=== PATIENT | female | born 1945 | race Caucasian/White ===

== ENCOUNTER 2019-06-18 17:35 | Emergency (ER) | payer MEDICARE ==
--- OUTSIDE RECORDS SUMMARY | 2019-06-18 17:43 | XMS REPORT | Continuity of Care Document ---
:1945 External Reference #:[id number] Author Name Mily Meredith M.D. (transmitted by agent of provider Vianca Ferrell) Address [address] [place] [address] Problems Active Problems Provider Date Type 2 diabetes mellitus Mily Meredith M.D. 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 256(28Fe) mg Tablets B12 Folate 1 by mouth daily 90caps D50.9 Mily Meredith, 05/11/2019 800-800mcg M.D. Capsules Nystatin/Triamcinolo apply to affectd 60gm Mily Meredith, 05/09/2019 ne Acetonide area of skin teice M.D. a day 464564-7.1Unit/GM-% Ointment Nystatin-Triamcinolo Apply To Affectd 60gm Mily Meredith, 05/09/2019 ne Area Of Skin Twice M.D. A Day 653921-5.1Unit/GM-% Ointment True Metrix Meter daily use for fs 1units E11.9 Mily Meredith, 02/20/2019 monitoring e11.65, M.D. Device uses 2x daily True Metrix Blood daily use for fs 150units E11.9 Mily Meredith, 02/20/2019 Glucosetest Strips monitoring e11.65, M.D. test 2x daily Strips [facility] Lancets Micro for use to monitor 100units E11.9 Mily Meredith, 2018 Thin 33G glucose , tests M.D. Thin 33G twice daily Misc Zolpidem Tartrate 1 tab by mouth 30tabs G47.00 Mily Meredith, 08/01/2018 every night at M.D. 10mg Tablets bedtime as needed Advair Diskus 1bid - inhale one 3units J44.9 Mily Meredith, 01/14/2017 puff by mouth M.D. 250-50mcg/Dose twice daily Aerosol Fluticasone as directed daily 16units J30.9 Mily Meredith, 07/28/2016 Propionate M.D. 50mcg/Act Suspension Omeprazole 1 by mouth every 90caps K21.9 Mily Meredith, 10/22/2015 20mg day M.D. Capsules DR Weber Calcium Take 1 Tablet By 90tabs E78.5 Mily Meredith, 06/17/2015 Mouth Every Day M.D. 40mg Tablets Lexapro 1 po qd 90tabs F41.1 Mily Meredith, 10/12/2011 10mg Tablets M.D. Albuterol Sulfate 1 vial qid 90units Mily Meredith, 08/05/2010 M.D. 0.63mg/3ML Nebulizer Metformin HCL 1 by mouth twice a 180tabs Mily Meredith, 01/01/2009 1000mg day M.D. Tablets Montelukast Sodium Take 1 Tablet By 90tabs Mily Meredith, Mouth Every Day M.D. 10mg Tablets History Medications Ra Trueresult Blood Mily Meredith, 02/07/2019 - Glucose Monitor M.D. 02/20/2019 w/Device Kit Truetest Test as directed for fs 400units Mily Meredith, 02/07/2019 - Strips monitoring for dx M.D. 02/20/2019 e11.65 Medications Administered in Office Medication SIG Qnty Indications Ordering Provider Date H1N1 Administration-Use Mily Meredith M.D. 07/12/2009 Injection Immunizations CPT Code Status Date Vaccine Lot # [id number] Given 05/03/2018 Influenza Virus (Quadrivalent)Splitvirus 3 Years Of Age And Older Q2035 Given 05/03/2018 Influenza Virus (Quadrivalent)Splitvirus 3 Years Of Age And Older Q2035 Given 04/21/2017 Influenza Virus (Quadrivalent)Splitvirus 3 [id number] Years Of Age And Older Q2037 Given 03/31/2016 Influenza Vaccine (Fluvirin) 2 Years Of Age Or [id number] Older 86741 Given 06/17/2015 Pneumococcal Conjugate Vaccine 13 Valent For [id number] Intramuscular Use Q2037 Given 06/04/2015 Influenza Vaccine (Fluvirin) 2 Years Of Age Or [id number] Older Q2037 Given 04/24/2014 Influenza Vaccine (Fluvirin) 2 Years Of Age Or Older Q2037 Given 04/24/2014 Influenza Vaccine (Fluvirin) 2 Years Of Age Or [id number] Older Q2038 Given 04/12/2013 Influenza Vaccine (Fluzone) Administered Age 3 [id number] And Older Q2038 Given 04/12/2013 Influenza Vaccine (Fluzone) Administered Age 3 And Older Q2037 Given 03/30/2012 Influenza Vaccine (Fluvirin) 2 Years Of Age Or [id number] Older Q2036 Given 04/30/2011 Flulaval [id number] Given 01/09/2011 Zostavax [id number] 85616 Given 04/15/2010 [place]neumovax [place] [id number] 09320 Given 04/15/2010 Influenza Vaccine [id number] 63009 Given 04/03/2009 Influenza Vaccine 88015 Given 05/06/2007 Influenza Vaccine 04425 85407 Given 08/04/2006 Influenza Vaccine [id number] Vital Signs Date Vital Result Comment 06/15/2019 10:51am BP Systolic 140 mmHg BP Diastolic 80 mmHg Heart Rate 84 /min Respiratory Rate 16 /min Height 62 inches 5'2" Weight 162.00 lb BMI (Body Mass Index) 29.6 kg/m2 O2 % BldC Oximetry 97 % 05/11/2019 12:16pm BP Systolic 162 mmHg BP Diastolic 92 mmHg Heart Rate 80 /min Height 63 inches 5'3" Weight 154.00 lb BMI (Body Mass Index) 27.3 kg/m2 O2 % BldC Oximetry 95 % Results Test Acquired Date Facility Test Result H/L Range Note Iron-Tibc-%Sat 06/08/2019 [facility] Serum Iron 21 g/dL Low 50-[address] [place] [address] [phone] Total Iron Binding Capacity 456 g/dL High 250-450 Transferrin %Saturation 5 % Low 12-57 Vitamin B12 06/08/2019 [facility] Vitamin B12 378 pg/ mL Normal 193-986 [address] Folate [address] [place], [place] [id number] [phone] Folic Acid > 20.0 ng/mL High 3.1-17.5 Laboratory test 06/05/2019 [facility] Enhanced PDF PDF IMAGE [address] [place] [address] [id number] [phone] Iron And Total 06/05/2019 [facility] Iron, Total 15 g/dL Low 45- [address] Binding [address] [place] [address] [phone] Iron Binding Capacity 428 mcg/dL(calc) Normal 250-450 % Saturation 4 %(calc) Low 16-45 Laboratory test 06/05/2019 [facility] PDF PDF IMAGE finding [address] [place] [address] [id number] [phone] Hemoglobin A1c 06/05/2019 [facility] Hemoglobin A1c 6.8 High <5.7 [address] %[place] [address] b [phone] eAG (mg/dL) 148 (calc) eAG (mmol/L) 8.2 (calc) Comprehensive Metabolic 06/05/2019 [facility] Glucose 155 mg/dL High 65-[address] [place], [place] [id number] [phone] Urea Nitrogen (BUN) 19 mg/dL Normal 7-25 Creatinine 0.67 mg/dL Normal 0.60-0.93 5 eGFR Non-Afr. Pakistani 86 mL/min/1.73m2 Normal > Or = 60 eGFR 100 mL/min/1.73m2 Normal > Or = 60 BUN/Creatinine Ratio NOT APPLICABLE (calc) 6-22 Sodium 137 mmol/L Normal 135-146 Potassium 4.8 mmol/L Normal 3.5-5.3 Chloride 99 mmol/L Normal 98-110 Carbon Dioxide 26 mmol/L Normal 20-32 Calcium 9.7 mg/dL Normal 8.6-10.4 Protein, Total 7.0 g/dL Normal 6.1-8.1 Albumin 4.3 g/dL Normal 3.6-5.1 Globulin 2.7 g/dL(calc) Normal 1.9-3.7 Albumin/Globulin Ratio 1.6 (calc) Normal 1.0-2.5 Bilirubin, Total 0.3 mg/dL Normal 0.2-1.2 Alkaline Phosphatase 58 U/L Normal 33-130 Ast 11 U/L Normal 10-35 Alt 10 U/L Normal 6-29 CBC (Includes 06/05/2019 [facility] White 6.2 Thousand/uL Normal 3.8-10.8 Diff/PLT) [address] [place] [address] Count Red Blood Cell Count 4.13 Million/uL Normal 3.80-5.10 Hemoglobin 8.3 g/dL Low 11.7-15.5 Hematocrit 27.8 % Low 35.0-45.0 MCV 67.3 fL Low 80.0-100.0 MCH 20.1 pg Low 27.0-33.0 MCHC 29.9 g/dL Low 32.0-36.0 RDW 20.2 % High 11.0-15.0 Platelet Count 442 Thousand/uL High 140-400 MPV 10.5 fL Normal 7.5-12.5 Absolute Neutrophils 3590 cells/uL Normal 8816-5682 Absolute Lymphocytes 1358 cells/uL Normal 850-3900 Absolute Monocytes 595 cells/uL Normal 200-950 Absolute Eosinophils 558 cells/uL High 15-500 Absolute Basophils 99 cells/uL Normal 0-200 Neutrophils 57.9 % Normal 38-80 Lymphocytes 21.9 % Normal 15-49 Monocytes 9.6 % Normal 0-13 Eosinophils 9.0 % High 0-8 Basophils 1.6 % Normal 0-2 General Health Panel 06/05/2019 [facility] TSH 2.44 mIU/L Normal 0.40-4.[address] [facility] [address] [place], [place] [id number] [phone] T4, Free 1.2 ng/dL Normal 0.8-1.8 Hemoblobin A1c 05/08/2019 [facility] Hemoglobin A1c 6.9 %oftotalHgb High <5.7 6 W/Eag [address] [place] [address] [phone] eAG (mg/dL) 151 (calc) eAG (mmol/L) 8.4 (calc) CBC W/ 05/08/2019 [facility] White Blood 6.5 Thousand/uL Normal 3.8 -10.8 Diff & PLT [address] [place] [address] [phone] Red Blood Cell Count 4.07 Million/uL Normal 3.80-5.10 Hemoglobin 7.9 g/dL Low 11.7-15.5 Hematocrit 27.1 % Low 35.0-45.0 MCV 66.6 fL Low 80.0-100.0 MCH 19.4 pg Low 27.0-33.0 MCHC 29.2 g/dL Low 32.0-36.0 RDW 19.4 % High 11.0-15.0 Platelet Count 455 Thousand/uL High 140-400 MPV 11.1 fL Normal 7.5-12.5 Absolute Neutrophils 3439 cells/uL Normal 4426-1398 Absolute Lymphocytes 1827 cells/uL Normal 850-3900 Absolute Monocytes 546 cells/uL Normal 200-950 Absolute Eosinophils 592 cells/uL High 15-500 Absolute Basophils 98 cells/uL Normal 0-200 Neutrophils 52.9 % Normal 38-80 Lymphocytes 28.1 % Normal 15-49 Monocytes 8.4 % Normal 0-13 Eosinophils 9.1 % High 0-8 Basophils 1.5 % Normal 0-2 Comment(S) Polychromasia 1 <SEE NOTE> 7 Basic Metabolic Panel 05/08/2019 [facility] Glucose 141 mg/dL High 65-99 8 W/O CA And Egfr [address] [place], [place] [id number] [phone] Urea Nitrogen (BUN) 15 mg/dL Normal 7-25 Creatinine 0.76 mg/dL Normal 0.60-0.93 9 BUN/Creatinine Ratio NOT APPLICABLE (calc) 6-22 Sodium 135 mmol/L Normal 135-146 Potassium 4.7 mmol/L Normal 3.5-5.3 Chloride 97 mmol/L Low 98-110 Carbon Dioxide 31 mmol/L Normal 20-32 Laboratory test 05/08/2019 [facility] Enhanced PDF SEE IMAGE finding [address] [place] [address] [id number] [phone] Basic Metabolic 01/24/2019 Sodium 137 mmol/L 135-14 10 Panel 6 Potassium 4.7 mmol/L 3.5-5.3 Chloride 100 mmol/L 98-110 Carbon Dioxide 27 mmol/L 20-32 11 Calcium 9.6 mg/dL 8.6-10.4 Glucose 147 mg/dL High 65-99 12 Urea Nitrogen (BUN) 22 mg/dL 7-25 Creatinine 0.79 mg/dL 0.60-0.93 13 BUN/Creatinine Ratio 27.6 High 6-22 Egfr Non-Afr. Pakistani 74 ML/MIN/1.73M2 > Or = 60 Egfr 85 ML/MIN/1.73M2 > Or = 60 Lipid Panel 01/24/2019 Cholesterol 181 mg/dL <199 HDL Cholesterol 71 mg/dL >50 Cholesterol/HDL Ratio 2.5 CALC <5.0 LDL Chol,Calculated 88 mg/dL 0-100 14 Triglycerides 122 mg/dL <150 Non-HDL Cholesterol 110 mg/dL <130 15 Laboratory test finding 01/24/2019 Hemoglobin A1c 6.6 % High 0-5.6 16 1 IRON DEF,ENEMAA 2 FASTING:YES FASTING: YES 3 For someone without known diabetes, a hemoglobin A1c value of 6.5% or greater indicates that they may have diabetes and this should be confirmed with a follow-up test. For someone with known diabetes, a value <7% indicates that their diabetes is well controlled and a value greater than or equal to 7% indicates suboptimal control. A1c targets should be individualized based on duration of diabetes, age, comorbid conditions, and other considerations. Currently, no consensus exists regarding use of hemoglobin A1c for diagnosis of diabetes for children. 4 Fasting reference interval For someone without known diabetes, a glucose value >125 mg/dL indicates that they may have diabetes and this should be confirmed with a follow-up test. 5 For patients >49 years of age, the reference limit for Creatinine is approximately 13% higher for people identified as -Pakistani. 6 For someone without known diabetes, a hemoglobin A1c value of 6.5% or greater indicates that they may have diabetes and this should be confirmed with a follow-up test. For someone with known diabetes, a value <7% indicates that their diabetes is well controlled and a value greater than or equal to 7% indicates suboptimal control. A1c targets should be individualized based on duration of diabetes, age, comorbid conditions, and other considerations. Currently, no consensus exists regarding use of hemoglobin A1c for diagnosis of diabetes for children. 7 Polychromasia 1 + Hypochromasia 2 + 8 Fasting reference interval For someone without known diabetes, a glucose value >125 mg/dL indicates that they may have diabetes and this should be confirmed with a follow-up test. 9 For patients >49 years of age, the reference limit for Creatinine is approximately 13% higher for people identified as -Pakistani. 10 FASTING 11 Reference range for high altitude clients: 18-30 mmol/L 12 GLUCOSE REFERENCE RANGE BASED ON FASTING SPECIMEN. 13 The upper reference limit for Creatinine is approximately 13% higher for people identified as -Pakistani. 14 LDL-C is now calculated using the Toño-Almodovar calculation, which is a validated novel method providing better accuracy than the Friedewald equation in the estimation of LDL-C. Toño LEWIS et al.NATY.2013;310(19):3102-9733 Desirable range <100 mg/dL for primary prevention; <70 mg/dL for patients with CHD or diabetic patients with >or= 2 CHD risk factors. For additional information, please refer to http://education.[employer]/faq/UNH591(This link is being provided for informational/educational purposes only.) 15 For patients with diabetes plus 1 major ASCVD risk factor, treating to a non-HDL-C goal of <100 mg/dL (LDL-C of <70 mg/ dL) is considered a therapeutic option. 16 For someone without known diabetes, a hemoglobin A1C value of 6.5% or greater indicates that they may have diabetes and this should be confirmed with a follow-up test. For someone with known diabetes, a value <7% indicates that their diabetes is well controlled and a value greater than or equal to 7% indicates suboptimal control. A1C targets should be individualized based on duration of diabetes, age, comorbid conditions, and other considerations. Currently, no consensus exists for use of hemoglobin A1C for diagnosis of diabetes for children. FOR DIAGNOSTIC PURPOSES: A1C VALUE(% OF TOTAL HEMOGLOBIN) INTERPRETATION < 5.7 CONSISTENT WITH THE ABSENCE OF DIABETES 5.7 - 6.4 CONSISTENT WITH INCREASED RISK OF DIABETES > OR = 6.5 CONSISTENT WITH DIABETES FOR MONITORING PURPOSES (ADA GUIDELINNES): A1C VALUE(% OF TOTAL HEMOGLOBIN) INTERPRETATION < 6.5 ACHIEVES STRINGENT GLYCEMIC GOAL < 7.0 ACHIEVES GENERAL GLYCEMIC GOAL(NON- ADULTS) < 8.0 ACHIEVES LESS STRINGENT GLYCEMIC GOAL Procedures Date Code Description Status 06/04/2016 [id number] Bone Mineral Density Test Completed 02/20/2015 [id number] Mammogram Completed 08/28/2011 [id number] Colonoscopy Completed Medical Devices Description No Information Available Encounters Type Date Location Provider Dx Diagnosis Office Visit 06/15/2019 Main Office Mily Meredith M.D. D50.9 Iron deficiency 10:45a anemia, unspecified Office Visit 05/11/2019 Main Office Mily Meredith M.D. D50.9 Iron deficiency 12:15p anemia, unspecified Office Visit 05/09/2019 Main Office Mily Meredith M.D. E11.9 Type 2 diabetes 10:45a mellitus without complications K21.9 Gastro-esophageal reflux disease without esophagitis Z12.31 Encntr screen mammogram for malignant neoplasm of breast Office Visit 02/20/2019 3:00p Main Office Mily Meredith E11.9 Type 2 diabetes M.D. mellitus without complications G47.00 Insomnia, unspecified Office Visit 02/07/2019 1:30p Main Office Margret More.9 Type 2 diabetes M.D. mellitus without complications K21.9 Gastro-esophageal reflux disease without esophagitis G47.00 Insomnia, unspecified K31.84 Gastroparesis Assessments Date Code Description Provider 06/15/2019 D50.9 Iron deficiency anemia, unspecified Mily Meredith M.D. 05/11/2019 D50.9 Iron deficiency anemia, unspecified Mily Meredith M.D. 05/09/2019 E11.9 Type 2 diabetes mellitus without complications Mily Meredith M.D. 05/09/2019 K21.9 Gastro-esophageal reflux disease without Mily Meredith M.D. esophagitis 05/09/2019 Z12.31 Encounter for screening mammogram for malignant Mily Meredith M.D. neoplasm of breast 02/20/2019 E11.9 Type 2 diabetes mellitus without complications Mily Meredith M.D. 02/20/2019 G47.00 Insomnia, unspecified Mily Meredith M.D. 02/07/2019 E11.9 Type 2 diabetes mellitus without complications Mily Meredith M.D. 02/07/2019 K21.9 Gastro-esophageal reflux disease without Mily Meredith M.D. esophagitis 02/07/2019 G47.00 Insomnia, unspecified Mily Meredith M.D. 02/07/2019 K31.84 Gastroparesis Mily Meredith M.D. Plan of Treatment Future Appointment(s):09/18/2019 11:45 am - Mily Meredith M.D. at [id number] - Mily Meredith M.D.B30.9 Viral conjunctivitis, unspecifiedNew Medication :Neomycin/Polymyxin/Dexamethasone 3.5-21509-7.1 - 1 qtt every 4 hours w/a in both eyeComments:eyedrops prescribed call if not better in 3 daysJ20.9 Acute bronchitis, unspecifiedNew Medication:Ciprofloxacin HCL 500 mg - 1 by mouth twice a dayComments:Advise trest and fluids. To call office if wheezing worsens or sx persist Functional Status Description No Information Available Mental Status Description No Information Available Referrals Description No Information Available
--- OUTSIDE RECORDS SUMMARY | 2019-06-18 17:43 | XMS REPORT | Continuity of Care Document ---
:1945 External Reference #:[id number] Author Name Mily Meredith M.D. (transmitted by agent of provider Vianca Ferrell) Address [address] [place] [address] Problems Active Problems Provider Date Type 2 [...] area of skin teice M.D. a day 145152-7.1Unit/GM-% Ointment Nystatin-Triamcinolo Apply To Affectd 60gm Mily Meredith, 05/09/2019 ne Area Of Skin Twice M.D. A Day 239097-7.1Unit/GM-% Ointment True Metrix Meter daily use for [...] Lot # [id number] Given 05/03/2018 Influenza Virus (Afluria) Split Virus 3 Years Of Age And Older Q2035 Given 05/03/2018 Influenza Virus (Afluria) Split Virus 3 Years Of Age And Older Q2035 Given 04/21/2017 Influenza Virus (Afluria) Split Virus 3 Years [id number] Of Age And Older Q2037 Given 03/31/2016 Influenza Vaccine (Fluvirin) 2 Years Of Age Or [id number] Older 53600 Given 06/17/2015 Pneumococcal Conjugate Vaccine 13 Valent For [id number] Intramuscular Use Q2037 Given 06/04/2015 Influenza Vaccine (Fluvirin) 3 Years Of Age Or [id number] Older Q2037 Given 04/24/2014 Influenza Vaccine (Fluvirin) 3 Years Of Age Or Older Q2037 Given 04/24/2014 Influenza Vaccine (Fluvirin) 3 Years Of Age Or [id number] Older Q2038 Given 04/12/2013 Influenza Vaccine (Fluzone) Administered Age 3 [id number] And Older Q2038 Given 04/12/2013 Influenza Vaccine (Fluzone) Administered Age 3 And Older Q2037 Given 03/30/2012 Influenza Vaccine (Fluvirin) 3 Years Of Age Or [id number] Older Q2036 Given 04/30/2011 Flulaval [id number] 17199 Given 01/09/2011 Zostavax [id number] 22854 Given 04/15/2010 Pneumovax Polyvalent Inj Im 0866z 72827 Given 04/15/2010 Influenza Vaccine [id number] 27621 Given 04/03/2009 Influenza Vaccine 56637 Given 05/06/2007 Influenza Vaccine 83510 25649 Given 08/04/2006 Influenza Vaccine 05020 Vital Signs Date Vital Result Comment 05/11/2019 12:16pm BP Systolic 162 mmHg BP Diastolic 92 mmHg Heart Rate 80 /min Height 63 inches 5'3" Weight 154.00 lb BMI (Body Mass Index) 27.3 kg/m2 O2 % BldC Oximetry 95 % 05/09/2019 10:52am BP Systolic 173 mmHg BP Diastolic 93 mmHg BP Systolic Recheck 150 mmHg BP Diastolic Recheck 84 mmHg Heart Rate 82 /min Height 63 inches 5'3" Weight 154.00 lb BMI (Body Mass Index) 27.3 kg/m2 O2 % BldC Oximetry 90 % Results Test Date Facility Test Result H/L Range Note Hemoblobin A1c 05/08/2019 [facility] Hemoglobin A1c 6.9 High <5.7 1 W/Eag [address] %oftotalHgb [place] [id number] [phone] eAG (mg/dL) 151 (calc) eAG (mmol/L) 8.4 (calc) CBC W/ 05/08/2019 [facility] White Blood 6.5 Thousand/uL Normal 3.8 -10.8 Diff & PLT [address] Cell Count [place], [place] [id number] [phone] Red Blood Cell Count 4.07 Million/uL Normal 3.80-5.10 Hemoglobin 7.9 g/dL Low 11.7-15.5 Hematocrit 27.1 % Low 35.0-45.0 MCV 66.6 fL Low 80.0-100.0 MCH 19.4 pg Low 27.0-33.0 MCHC 29.2 g/dL Low 32.0-36.0 RDW 19.4 % High 11.0-15.0 Platelet Count 455 Thousand/uL High 140-400 MPV 11.1 fL Normal 7.5-12.5 Absolute Neutrophils 3439 cells/uL Normal 7803-3134 Absolute Lymphocytes 1827 cells/uL Normal 850-3900 Absolute Monocytes 546 cells/uL Normal 200-950 Absolute Eosinophils 592 cells/uL High 15-500 Absolute Basophils 98 cells/uL Normal 0-200 Neutrophils 52.9 % Normal 38-80 Lymphocytes 28.1 % Normal 15-49 Monocytes 8.4 % Normal 0-13 Eosinophils 9.1 % High 0-8 Basophils 1.5 % Normal 0-2 Comment(S) Polychromasia 1 <SEE NOTE> 2 Basic Metabolic Panel 05/08/2019 [facility] Glucose 141 mg/dL High 65-99 3 W/O CA And Egfr [address] [place] [id number] [phone] Urea Nitrogen (BUN) 15 mg/dL Normal 7-25 Creatinine 0.76 mg/dL Normal 0.60-0.93 4 BUN/Creatinine Ratio NOT APPLICABLE (calc) 6-22 Sodium 135 mmol/L Normal 135-146 Potassium 4.7 mmol/L Normal 3.5-5.3 Chloride 97 mmol/L Low 98-110 Carbon Dioxide 31 mmol/L Normal 20-32 Laboratory test 05/08/2019 [facility] Enhanced PDF SEE IMAGE finding [address] [facility] [place] [address] [id number] [phone] Basic Metabolic 01/24/2019 Old DO Not Use [facility] Sodium 137 mmol/L 135-14 [address] [place], [place] [id number] [phone] Potassium 4.7 mmol/L 3.5-5.3 Chloride 100 mmol/L 98-110 Carbon Dioxide 27 mmol/L 20-32 6 Calcium 9.6 mg/dL 8.6-10.4 Glucose 147 mg/dL High 65-99 7 Urea Nitrogen (BUN) 22 mg/dL 7-25 Creatinine 0.79 mg/dL 0.60-0.93 8 BUN/Creatinine Ratio 27.6 High 6-22 Egfr Non-Afr. Stateless 74 ML/MIN/1.73M2 > Or = 60 Egfr 85 ML/MIN/1.73M2 > Or = 60 Lipid Panel 01/24/2019 Old DO Not Use [facility] Cholesterol 181 mg/dL < [address] [place] [address] [phone] HDL Cholesterol 71 mg/dL >50 Cholesterol/HDL Ratio 2.5 CALC <5.0 LDL Chol,Calculated 88 mg/dL 0-100 9 Triglycerides 122 mg/dL <150 Non-HDL Cholesterol 110 mg/dL <130 10 Laboratory test 01/24/2019 Old DO Not Use [facility] Hemoglobin A1c 6.6 % High 0-5.6 [address] [place], [place] [id number] [phone] 1 For someone without known diabetes, a hemoglobin [...] A1c for diagnosis of diabetes for children. 2 Polychromasia 1 + Hypochromasia 2 + 3 Fasting reference interval For someone without known diabetes, a glucose value >125 mg/dL indicates that they may have diabetes and this should be confirmed with a follow-up test. 4 For patients >49 years of age, the reference limit for Creatinine is approximately 13% higher for people identified as -Stateless. 5 FASTING 6 Reference range for high altitude clients: 18-30 mmol/L 7 GLUCOSE REFERENCE RANGE BASED ON FASTING SPECIMEN. 8 The upper reference limit for Creatinine is approximately 13% higher for people identified as -Stateless. 9 LDL-C is now calculated using the Toño-Almodovar calculation, which is a validated novel method providing better accuracy than the Friedewald equation in the estimation of LDL-C. Toño LEWIS et al.NATY.2013;310(19):8845-0725 Desirable range <100 mg/dL for primary prevention; <70 mg/dL for patients with CHD or diabetic patients with >or= 2 CHD risk factors. For additional information, please refer to http://education.eelusion/faq/LMR191(This link is being provided for informational/educational purposes only.) 10 For patients with diabetes plus 1 major ASCVD risk factor, treating to a non-HDL-C goal of <100 mg/dL (LDL-C of <70 mg/ dL) is considered a therapeutic option. 11 For someone without known diabetes, a hemoglobin [...] GOAL Procedures Date Code Description Status 06/04/2016 [id number] Bone Mineral Density Test Completed 02/20/2015 [id number] Mammogram Completed 08/28/2011 [id number] Colonoscopy Completed Medical Devices Description No Information Available Encounters Type Date Location Provider Dx Diagnosis Office Visit 05/09/2019 Main Office Mily Meredith M.D. E11.9 Type 2 diabetes 10:45a mellitus without complications K21.9 Gastro-esophageal reflux disease without esophagitis Z12.31 Encntr screen mammogram for malignant neoplasm of breast Office Visit 02/20/2019 3:00p Main Office Mily Meredith E11.9 Type 2 diabetes M.D. mellitus without complications G47.00 Insomnia, unspecified Office Visit 02/07/2019 1:30p Main Office Mily Meredith E11.9 Type 2 diabetes M.D. mellitus without complications K21.9 Gastro-esophageal reflux disease without esophagitis G47.00 Insomnia, unspecified K31.84 Gastroparesis Assessments Date Code Description Provider 05/11/2019 D50.9 Iron deficiency anemia, unspecified Mily [...] Mily Meredith M.D. Plan of Treatment Future Appointment(s):06/05/2019 8:00 am - Nurse at Main Appcdv4806/15/2019 10: 45 am - Mily Meredith M.D. at Main Zhwzoc0008/16/2018 - Mily Meredith M.D.B30.9 Viral conjunctivitis, unspecifiedNew Medication:Neomycin/Polymyxin/ Dexamethasone 3.5-59612-7.1 - 1 qtt every 4 hours w/a in both eyeComments: eyedrops prescribed call if not better in 3 daysJ20.9 Acute bronchitis, unspecifiedNew Medication:Ciprofloxacin HCL 500 mg - 1 by mouth twice a dayComments:Advise trest and fluids. To call office if wheezing worsens or sx persist Functional Status Description No Information Available Mental Status Description No Information Available Referrals Description No Information Available
--- OUTSIDE RECORDS SUMMARY | 2019-06-18 17:43 | XMS REPORT | Continuity of Care Document ---
:1945 External Reference #:[id number] Author Name Mily Meredith M.D. (transmitted by agent of provider Vianca Ferrell) Address [address] [place] [address] Problems Active Problems Provider Date Type 2 [...] Medications SIG Qnty Indications Ordering Date Provider Nystatin/Triamcinolo apply to affectd 60gm Mily Meredith, 05/09/2019 ne Acetonide area of skin teice M.D. a day 928115-1.1Unit/GM-% Ointment Nystatin-Triamcinolo Apply To Affectd 60gm Mily Meredith, 05/09/2019 ne Area Of Skin Twice M.D. A Day 706637-2.1Unit/GM-% Ointment True Metrix Meter daily use for [...] Mily Meredith, 10/22/2015 20mg day M.D. Capsules Atorvastatin Calcium Take 1 Tablet By 90tabs E78.5 [...] Influenza Virus (Afluria) Split Virus 3 Years [id number] Of Age And Older Q2037 Given 03/31/2016 Influenza Vaccine (Fluvirin) 3 Years Of Age Or [id number] Older 54838 Given 06/17/2015 Pneumococcal Conjugate Vaccine 13 Valent For [id number] Intramuscular Use Q2037 Given 06/04/2015 Influenza Vaccine (Fluvirin) 3 Years Of Age Or [id number] Older Q2037 Given 04/24/2014 Influenza Vaccine (Fluvirin) 3 Years Of Age Or Older Q2037 Given 04/24/2014 Influenza Vaccine (Fluvirin) 3 Years Of Age Or [id number] Older Q2038 Given 04/12/2013 Influenza Vaccine (Fluzone) Administered Age 3 [id number] And Older Q2038 Given 04/12/2013 Influenza Vaccine (Fluzone) Administered Age 3 And Older Q2037 Given 03/30/2012 Influenza Vaccine (Fluvirin) 3 Years Of Age Or [id number] Older Q2036 Given 04/30/2011 Flulaval [id number] 39969 Given 01/09/2011 Zostavax [id number] 48043 Given 04/15/2010 Pneumovax Polyval[place] Im 0866z 92708 Given 04/15/2010 Influenza Vaccine [id number] 54738 Given 04/03/2009 Influenza Vaccine 02731 Given 05/06/2007 Influenza Vaccine 53059 36475 Given 08/04/2006 Influenza Vaccine 63559 Vital Signs Date Vital Result Comment 05/09/2019 10:52am BP Systolic 173 mmHg BP Diastolic 93 mmHg BP Systolic Recheck 150 mmHg BP Diastolic Recheck 84 mmHg Heart Rate 82 /min Height 63 inches 5'3" Weight 154.00 lb BMI (Body Mass Index) 27.3 kg/m2 O2 % BldC Oximetry 90 % 02/20/2019 3:01pm BP Systolic 128 mmHg BP Diastolic 70 mmHg Heart Rate 82 /min Height 63 inches 5'3" Weight 156.00 lb BMI (Body Mass Index) 27.6 kg/m2 Results Test Date Facility Test Result H/L Range Note Hemoblobin A1c 05/08/2019 [facility] Hemoglobin A1c 6.9 High <5.7 1 W/Eag [address] [place] [address] [phone] eAG (mg/dL) 151 (calc) eAG (mmol/L) 8.4 (calc) CBC W/ 05/08/2019 [facility] White Blood 6.5 Thousand/uL Normal 3.8 -10.8 Diff & PLT [address] Cell Count [place] [id number] [phone] Red Blood Cell Count 4.07 Million/uL Normal 3.80-5.10 Hemoglobin 7.9 g/dL Low 11.7-15.5 Hematocrit 27.1 % Low 35.0-45.0 MCV 66.6 fL Low 80.0-100.0 MCH 19.4 pg Low 27.0-33.0 MCHC 29.2 g/dL Low 32.0-36.0 RDW 19.4 % High 11.0-15.0 Platelet Count 455 Thousand/uL High 140-400 MPV 11.1 fL Normal 7.5-12.5 Absolute Neutrophils 3439 cells/uL Normal 9759-0151 Absolute Lymphocytes 1827 cells/uL Normal 850-3900 Absolute Monocytes 546 cells/uL Normal 200-950 Absolute Eosinophils 592 cells/uL High 15-500 Absolute Basophils 98 cells/uL Normal 0-200 Neutrophils 52.9 % Normal 38-80 Lymphocytes 28.1 % Normal 15-49 Monocytes 8.4 % Normal 0-13 Eosinophils 9.1 % High 0-8 Basophils 1.5 % Normal 0-2 Comment(S) Polychromasia 1 <SEE NOTE> 2 Basic Metabolic Panel 05/08/2019 [facility] Glucose 141 mg/dL High 65-99 3 W/O CA And Egfr [address] [place] [id number] [phone] Urea Nitrogen (BUN) 15 mg/dL Normal 7-25 Creatinine 0.76 mg/dL Normal 0.60-0.93 4 BUN/Creatinine Ratio NOT APPLICABLE (calc) 6-22 Sodium 135 mmol/L Normal 135-146 Potassium 4.7 mmol/L Normal 3.5-5.3 Chloride 97 mmol/L Low 98-110 Carbon Dioxide 31 mmol/L Normal 20-32 Laboratory test 05/08/2019 [facility] Enhanced PDF SEE IMAGE finding [address] Report [place] [address] [id number] [phone] Basic Metabolic 01/24/2019 Old DO Not Use [facility] Sodium 137 mmol/L 135-14 [address] [place] [address] [phone] Potassium 4.7 mmol/L 3.5-5.3 Chloride 100 mmol/L 98-110 Carbon Dioxide 27 mmol/L 20-32 6 Calcium 9.6 mg/dL 8.6-10.4 Glucose 147 mg/dL High 65-99 7 Urea Nitrogen (BUN) 22 mg/dL 7-25 Creatinine 0.79 mg/dL 0.60-0.93 8 BUN/Creatinine Ratio 27.6 High 6-22 Egfr Non-Afr. Qatari 74 ML/MIN/1.73M2 > Or = 60 Egfr 85 ML/MIN/1.73M2 > Or = 60 Lipid Panel 01/24/2019 Old DO Not Use [facility] Cholesterol 181 mg/dL < [address] [place] [address] [phone] HDL Cholesterol 71 mg/dL >50 Cholesterol/HDL Ratio 2.5 CALC <5.0 LDL Chol,Calculated 88 mg/dL 0-100 9 Triglycerides 122 mg/dL <150 Non-HDL Cholesterol 110 mg/dL <130 10 Laboratory test 01/24/2019 Old DO Not Use [facility] Hemoglobin A1c 6.6 % High 0-5.6 [address] [place] [address] [phone] 1 For someone without known diabetes, a [...] approximately 13% higher for people identified as -Qatari. 5 FASTING 6 Reference range for high altitude clients: 18-30 mmol/L 7 GLUCOSE REFERENCE RANGE BASED ON FASTING SPECIMEN. 8 The upper reference limit for Creatinine is approximately 13% higher for people identified as -Qatari. 9 LDL-C is now calculated using the Toño-Nishi calculation, which is a validated novel method providing better accuracy than the Friedewald equation in the estimation of LDL-C. Toño LEWIS et al.NATY.2013;310(19):9510-9174 Desirable range <100 mg/dL for primary prevention; <70 mg/dL for patients with CHD or diabetic patients with >or= 2 CHD risk factors. For additional information, please refer to http://education.OptMed.PerBlue/faq/WHH564(This link is being provided for informational/educational purposes [...] GOAL Procedures Date Code Description Status 06/04/2016 [id number] Bone Mineral Density Test Completed 02/20/2015 [id number] Mammogram Completed 08/28/2011 [id number] Colonoscopy Completed Medical Devices Description No Information Available Encounters Type Date Location Provider Dx Diagnosis Office Visit 02/20/2019 Main Office Mily Meredith M.D. E11.9 Type 2 diabetes 3:00p mellitus without complications G47.00 Insomnia, unspecified Office Visit 02/07/2019 1:30p Main Office Mily Meredith E11.9 Type 2 diabetes M.D. mellitus without complications K21.9 Gastro-esophageal reflux disease without esophagitis G47.00 Insomnia, unspecified K31.84 Gastroparesis Assessments Date Code Description Provider 05/09/2019 E11.9 Type 2 diabetes mellitus without [...] Gastroparesis Mily Meredith M.D. Plan of Treatment 08/16/2018 - Mily Meredith M.D.B30.9 Viral conjunctivitis, unspecifiedNew Medication:Neomycin/Polymyxin/Dexamethasone 3.5-28563-9.1 - 1 qtt every 4 hours w/a [...]
--- OUTSIDE RECORDS SUMMARY | 2019-06-18 17:43 | XMS REPORT | Continuity of Care Document ---
:1945 External Reference #:[id number] Author Name Mily Meredith M.D. (transmitted by agent of provider Maryann Medley) Address [address] [place] [address] Problems Active Problems Provider Date Type 2 [...] area of skin teice M.D. a day 127276-8.1Unit/GM-% Ointment Nystatin-Triamcinolo Apply To Affectd 60gm Mily Meredith, 05/09/2019 ne Area Of Skin Twice M.D. A Day 798660-8.1Unit/GM-% Ointment True Metrix Meter daily use for [...] Influenza Virus (Afluria) Split Virus 3 Years [id number] Of Age And Older Q2037 Given 03/31/2016 Influenza Vaccine (Fluvirin) 2 Years Of Age Or [id number] Older 80140 Given 06/17/2015 Pneumococcal Conjugate Vaccine 13 Valent For [id number] Intramuscular Use Q2037 Given 06/04/2015 Influenza Vaccine (Fluvirin) 3 Years Of Age Or [id number] Older Q2037 Given 04/24/2014 Influenza Vaccine (Fluvirin) 3 Years Of Age Or Older Q2037 Given 04/24/2014 Influenza Vaccine (Fluvirin) 3 Years Of Age Or [id number] Older Q2038 Given 04/12/2013 Influenza Vaccine (Fluzone) Administered Age 3 [id number] And Older Q2038 Given 04/12/2013 Influenza Vaccine (Fluzone) Administered Age 3 And Older Q2037 Given 03/30/2012 Influenza Vaccine (Fluvirin) 3 Years Of Age Or [id number] Older Q2036 Given 04/30/2011 Flulaval [id number] 79735 Given 01/09/2011 Zostavax [id number] 72293 Given 04/15/2010 [place]ovax [place]val[place] Im 0866z 73264 Given 04/15/2010 Influenza Vaccine [id number] 91857 Given 04/03/2009 Influenza Vaccine 03996 Given 05/06/2007 Influenza Vaccine 08254 79103 Given 08/04/2006 Influenza Vaccine 53213 Vital Signs Date Vital Result Comment 05/11/2019 [...] H/L Range Note Hemoblobin A1c 05/08/2019 [facility] Hemoglobin A1c 6.9 High <5.7 1 W/Eag [address] %oftotalHgb [place], [place] [id number] [phone] eAG (mg/dL) 151 (calc) eAG (mmol/L) 8.4 (calc) CBC W/ 05/08/2019 [facility] White Blood 6.5 Thousand/uL Normal 3.8 -10.8 Diff & PLT [address] Cell Count [place] [id number] [phone] Red Blood Cell Count 4.07 Million/uL Normal 3.80-5.10 Hemoglobin 7.9 g/dL Low 11.7-15.5 Hematocrit 27.1 % Low 35.0-45.0 MCV 66.6 fL Low 80.0-100.0 MCH 19.4 pg Low 27.0-33.0 MCHC 29.2 g/dL Low 32.0-36.0 RDW 19.4 % High 11.0-15.0 Platelet Count 455 Thousand/uL High 140-400 MPV 11.1 fL Normal 7.5-12.5 Absolute Neutrophils 3439 cells/uL Normal 7444-3342 Absolute Lymphocytes 1827 cells/uL Normal 850-3900 Absolute Monocytes 546 cells/uL Normal 200-950 Absolute Eosinophils 592 cells/uL High 15-500 Absolute Basophils 98 cells/uL Normal 0-200 Neutrophils 52.9 % Normal 38-80 Lymphocytes 28.1 % Normal 15-49 Monocytes 8.4 % Normal 0-13 Eosinophils 9.1 % High 0-8 Basophils 1.5 % Normal 0-2 Comment(S) Polychromasia 1 <SEE NOTE> 2 Basic Metabolic Panel 05/08/2019 [facility] Glucose 141 mg/dL High 65-99 3 W/O CA And Egfr [address] [place] [id number] [phone] Urea Nitrogen (BUN) 15 mg/dL Normal 7-25 Creatinine 0.76 mg/dL Normal 0.60-0.93 4 BUN/Creatinine Ratio NOT APPLICABLE (calc) 6-22 Sodium 135 mmol/L Normal 135-146 Potassium 4.7 mmol/L Normal 3.5-5.3 Chloride 97 mmol/L Low 98-110 Carbon Dioxide 31 mmol/L Normal 20-32 Laboratory test 05/08/2019 [facility] Enhanced PDF SEE IMAGE finding [address] Report [place] [address] [id number] [phone] Basic Metabolic 01/24/2019 Old DO Not Use [facility] Sodium 137 mmol/L 135-14 [address] [place] [address] [phone] Potassium 4.7 mmol/L 3.5-5.3 Chloride 100 mmol/L 98-110 Carbon Dioxide 27 mmol/L 20-32 6 Calcium 9.6 mg/dL 8.6-10.4 Glucose 147 mg/dL High 65-99 7 Urea Nitrogen (BUN) 22 mg/dL 7-25 Creatinine 0.79 mg/dL 0.60-0.93 8 BUN/Creatinine Ratio 27.6 High 6-22 Egfr Non-Afr. Honduran 74 ML/MIN/1.73M2 > Or = 60 Egfr 85 ML/MIN/1.73M2 > Or = 60 Lipid Panel 01/24/2019 Old DO Not Use [facility] Cholesterol 181 mg/dL < [address] [place] [address] [phone] HDL Cholesterol 71 mg/dL >50 Cholesterol/HDL Ratio 2.5 CALC <5.0 LDL Chol,Calculated 88 mg/dL 0-100 9 Triglycerides 122 mg/dL <150 Non-HDL Cholesterol 110 mg/dL <130 10 Laboratory test 01/24/2019 Old DO Not Use [facility] Hemoglobin A1c 6.6 % High 0-5.6 [address] [place] [address] [phone] 1 For someone without known diabetes, a [...] approximately 13% higher for people identified as -Honduran. 5 FASTING 6 Reference range for high altitude clients: 18-30 mmol/L 7 GLUCOSE REFERENCE RANGE BASED ON FASTING SPECIMEN. 8 The upper reference limit for Creatinine is approximately 13% higher for people identified as -Honduran. 9 LDL-C is now calculated using the Ramiro calculation, which is a validated novel method providing better accuracy than the Friedewald equation in the estimation of LDL-C. Toño LEWIS et al.NATY.2013;310(19):3632-9491 Desirable range <100 mg/dL for primary prevention; <70 mg/dL for patients with CHD or diabetic patients with >or= 2 CHD risk factors. For additional information, please refer to http://education.L3/faq/MSW377(This link is being provided for informational/educational purposes [...] GOAL Procedures Date Code Description Status 06/04/2016 [id number] Bone Mineral Density Test Completed 02/20/2015 [id number] Mammogram Completed 08/28/2011 [id number] Colonoscopy Completed Medical Devices Description No Information Available Encounters Type Date Location Provider Dx Diagnosis Office Visit 05/09/2019 Main Office Mily Meredith M.D. E11.9 Type 2 diabetes 10:45a mellitus without complications K21.9 Gastro-esophageal reflux disease without esophagitis Z12.31 Encntr screen mammogram for malignant neoplasm of breast Office Visit 02/20/2019 3:00p Main Office Mily Meredith, E11.9 Type 2 diabetes M.D. mellitus without complications G47.00 Insomnia, unspecified Office Visit 02/07/2019 1:30p Main Office Mily Meredith, E11.9 Type 2 diabetes M.D. mellitus without [...] Mily Meredith M.D. esophagitis 02/07/2019 G47.00 Insomnia, ericaified Mily Meredith M.D. 02/07/2019 K31.84 Gastroparesis Mily Meredith M.D. Plan of Treatment 08/16/2018 - Mily Meredith M.D.B30.9 Viral conjunctivitis, unspecifiedNew Medication:Neomycin/Polymyxin/Dexamethasone 3.5-61876-6.1 - 1 qtt every 4 hours w/a [...]
--- OUTSIDE RECORDS SUMMARY | 2019-06-18 17:43 | XMS REPORT | Continuity of Care Document ---
:1945 External Reference #:[id number] Author Name Mily Meredith M.D. (transmitted by agent of provider Maryann Medley) Address [address] [place] [address] Problems Active Problems Provider Date Type 2 [...] area of skin teice M.D. a day 008535-7.1Unit/GM-% Ointment True Metrix Meter daily use for [...] Meredith, 10/22/2015 20mg day M.D. Capsules DR Atorvastatin Calcium Take 1 Tablet By 90tabs [...] Influenza Virus (Afluria) Split Virus 2 Years [id number] Of Age And Older Q2037 Given 03/31/2016 Influenza Vaccine (Fluvirin) 2 Years Of Age Or [id number] Older 98177 Given 06/17/2015 Pneumococcal Conjugate Vaccine 13 Valent For [id number] Intramuscular Use Q2037 Given 06/04/2015 Influenza Vaccine (Fluvirin) 2 Years Of Age Or [id number] Older Q2037 Given 04/24/2014 Influenza Vaccine (Fluvirin) 3 Years Of Age Or Older Q2037 Given 04/24/2014 Influenza Vaccine (Fluvirin) 2 Years Of Age Or [id number] Older Q2038 Given 04/12/2013 Influenza Vaccine (Fluzone) Administered Age 3 [id number] And Older Q2038 Given 04/12/2013 Influenza Vaccine (Fluzone) Administered Age 3 And Older Q2037 Given 03/30/2012 Influenza Vaccine (Fluvirin) 2 Years Of Age Or [id number] Older Q2036 Given 04/30/2011 Flulaval [id number] 47673 Given 01/09/2011 Zostavax [id number] 27981 Given 04/15/2010 Pneumovax Polyvalent Inj Im [id number] 62631 Given 04/15/2010 Influenza Vaccine [id number] 51461 Given 04/03/2009 Influenza Vaccine 09670 Given 05/06/2007 Influenza Vaccine 01270 70364 Given 08/04/2006 Influenza Vaccine 43540 Vital Signs Date Vital Result Comment 05/09/2019 [...] H/L Range Note Hemoblobin A1c 05/08/2019 [facility] Hemoglobin A1c 6.9 High <5.7 1 W/Eag [address] %oftotalHgb [place] [address] [phone] eAG (mg/dL) 151 (calc) eAG (mmol/L) 8.4 (calc) CBC W/ Diff & PLT 05/08/2019 [facility] White Blood Cell <pending> [address] Count [place] [id number] [phone] Red Blood Cell Count <pending> Hemoglobin <pending> Hematocrit <pending> MCV <pending> MCH <pending> MCHC <pending> RDW <pending> Platelet Count <pending> MPV <pending> Absolute Neutrophils <pending> Absolute Band Neutrophils <pending> Absolute Metamyelocytes <pending> Absolute Myelocytes <pending> Absolute Promyelocytes <pending> Absolute Lymphocytes <pending> Absolute Monocytes <pending> Absolute Eosinophils <pending> Absolute Basophils <pending> Absolute Blasts <pending> Absolute Nucleated RBC <pending> Neutrophils <pending> Band Neutrophils <pending> Metamyelocytes <pending> Myelocytes <pending> Promyelocytes <pending> Lymphocytes <pending> Reactive Lymphocytes <pending> Monocytes <pending> Eosinophils <pending> Basophils <pending> Blasts <pending> Nucleated RBC <pending> Comment(S) <pending> Basic Metabolic Panel 05/08/2019 [facility] Glucose 141 mg/dL High 65-99 2 W/O CA And Egfr [address] [place] [id number] [phone] Urea Nitrogen (BUN) 15 mg/dL Normal 7-25 Creatinine 0.76 mg/dL Normal 0.60-0.93 3 BUN/Creatinine Ratio NOT APPLICABLE (calc) 6-22 Sodium 135 mmol/L Normal 135-146 Potassium 4.7 mmol/L Normal 3.5-5.3 Chloride 97 mmol/L Low 98-110 Carbon Dioxide 31 mmol/L Normal 20-32 Laboratory test 05/08/2019 [facility] Enhanced PDF SEE IMAGE finding [address] Report [place] [address] [id number] [phone] Basic Metabolic 01/24/2019 Old DO Not Use [facility] Sodium 137 mmol/L 135-[address] 6 [place] [address] [phone] Potassium 4.7 mmol/L 3.5-5.3 Chloride 100 mmol/L 98-110 Carbon Dioxide 27 mmol/L 20-32 5 Calcium 9.6 mg/dL 8.6-10.4 Glucose 147 mg/dL High 65-99 6 Urea Nitrogen (BUN) 22 mg/dL 7-25 Creatinine 0.79 mg/dL 0.60-0.93 7 BUN/Creatinine Ratio 27.6 High 6-22 Egfr Non-Afr. Rwandan 74 ML/MIN/1.73M2 > Or = 60 Egfr 85 ML/MIN/1.73M2 > Or = 60 Lipid Panel 01/24/2019 Old DO Not Use [facility] Cholesterol 181 mg/dL < [address] [place], [place] [id number] [phone] HDL Cholesterol 71 mg/dL >50 Cholesterol/HDL Ratio 2.5 CALC <5.0 LDL Chol,Calculated 88 mg/dL 0-100 8 Triglycerides 122 mg/dL <150 Non-HDL Cholesterol 110 mg/dL <130 9 Laboratory test 01/24/2019 Old DO Not Use [facility] Hemoglobin A1c 6.6 % High 0-5.6 [address] [place] [address] [phone] 1 For someone without known diabetes, a [...] for diagnosis of diabetes for children. 2 Fasting reference interval For someone without known diabetes, a glucose value >125 mg/dL indicates that they may have diabetes and this should be confirmed with a follow-up test. 3 For patients >49 years of age, the reference limit for Creatinine is approximately 13% higher for people identified as -Rwandan. 4 FASTING 5 Reference range for high altitude clients: 18-30 mmol/L 6 GLUCOSE REFERENCE RANGE BASED ON FASTING SPECIMEN. 7 The upper reference limit for Creatinine is approximately 13% higher for people identified as -Rwandan. 8 LDL-C is now calculated using the Ramiro calculation, which is a validated novel method providing better accuracy than the Friedewald equation in the estimation of LDL-C. Toño LEWIS et al.NATY.2013;310(94):7548-4003 Desirable range <100 mg/dL for primary prevention; <70 mg/dL for patients with CHD or diabetic patients with >or= 2 CHD risk factors. For additional information, please refer to http://education.[employer]/faq/ISO095(This link is being provided for informational/educational purposes only.) 9 For patients with diabetes plus 1 major ASCVD risk factor, treating to a non-HDL-C goal of <100 mg/dL (LDL-C of <70 mg/ dL) is considered a therapeutic option. 10 For someone without known diabetes, a hemoglobin [...] GOAL Procedures Date Code Description Status 06/04/2016 [id number] Bone Mineral Density Test Completed 02/20/2015 [id number] Mammogram Completed 08/28/2011 [id number] Colonoscopy Completed Medical Devices Description No Information [...] Mily Meredith M.D.B30.9 Viral conjunctivitis, unspecifiedNew Medication:Neomycin/Polymyxin/Dexamethasone 3.5-69523-8.1 - 1 qtt every 4 hours w/a [...]
--- OUTSIDE RECORDS SUMMARY | 2019-06-18 17:43 | XMS REPORT | Continuity of Care Document ---
:1945 External Reference #:[id number] Author Name Mily Meredith M.D. (transmitted by agent of provider Tamra Silver) Address [address] [place] [address] Problems Active Problems Provider Date Type 2 [...] area of skin teice M.D. a day 639399-2.1Unit/GM-% Ointment Nystatin-Triamcinolo Apply To Affectd 60gm Mily Meredith, 05/09/2019 ne Area Of Skin Twice M.D. A Day 562542-2.1Unit/GM-% Ointment True Metrix Meter daily use for [...] Q2035 Given 04/21/2017 Influenza Virus (Quadrivalent)Splitvirus 3 [id number] Years Of Age And Older Q2037 Given 03/31/2016 Influenza Vaccine (Fluvirin) 2 Years Of Age Or [id number] Older 93709 Given 06/17/2015 Pneumococcal Conjugate Vaccine 13 Valent For [id number] Intramuscular Use Q2037 Given 06/04/2015 Influenza Vaccine (Fluvirin) 3 Years Of Age Or [id number] Older Q2037 Given 04/24/2014 Influenza Vaccine (Fluvirin) 3 Years Of Age Or Older Q2037 Given 04/24/2014 Influenza Vaccine (Fluvirin) 2 Years Of Age Or [id number] Older Q2038 Given 04/12/2013 Influenza Vaccine (Fluzone) Administered Age 3 [id number] And Older Q2038 Given 04/12/2013 Influenza Vaccine (Fluzone) Administered Age 3 And Older Q2037 Given 03/30/2012 Influenza Vaccine (Fluvirin) 3 Years Of Age Or [id number] Older Q2036 Given 04/30/2011 Flulaval [id number] 72609 Given 01/09/2011 Zostavax [id number] 27323 Given 04/15/2010 Pneumovax Polyvalent Inj Im 0866z 10263 Given 04/15/2010 Influenza Vaccine [id number] 06568 Given 04/03/2009 Influenza Vaccine 84163 Given 05/06/2007 Influenza Vaccine 53163 62572 Given 08/04/2006 Influenza Vaccine 67072 Vital Signs Date Vital Result Comment 06/15/2019 [...] Test Result H/L Range Note Iron-Tibc-%Sat 06/08/2019 [facility] Serum Iron 21 g/dL Low 50-[address] [place] [address] [phone] Total Iron Binding Capacity 456 g/dL High 250-450 Transferrin %Saturation 5 % Low 12-57 Vitamin B12 06/08/2019 [facility] Vitamin B12 378 pg/ mL Normal 193-9[address] [place], [place] [id number] [phone] Folic Acid > 20.0 ng/mL High 3.1-17.5 Laboratory test 06/05/2019 [facility] Enhanced PDF PDF IMAGE [address] [place] [address] [id number] [phone] Iron And Total 06/05/2019 [facility] Iron, Total 15 g/dL Low 45- [address] Binding [address] [place] [address] [phone] Iron Binding Capacity 428 mcg/dL(calc) Normal 250-450 % Saturation 4 %(calc) Low 16-45 Laboratory test 06/05/2019 [facility] Enhanced PDF PDF IMAGE finding [address] [place] [address] [id number] [phone] Hemoglobin A1c 06/05/2019 [facility] Hemoglobin A1c 6.8 High <5.7 [address] [place] [address] b [phone] eAG (mg/dL) 148 (calc) eAG (mmol/L) 8.2 (calc) Comprehensive Metabolic 06/05/2019 [facility] Glucose 155 mg/dL High 65-[address] [place], [place] [id number] [phone] Urea Nitrogen (BUN) 19 mg/dL Normal 7-25 Creatinine 0.67 mg/dL Normal 0.60-0.93 5 eGFR Non-Afr. Egyptian 86 mL/min/1.73m2 Normal > Or = 60 [...] U/L Normal 6-29 CBC (Includes 06/05/2019 [facility] White 6.2 Thousand/uL Normal 3.8-10.8 Diff/PLT) [address] [place] [address] Count Red Blood Cell Count 4.13 Million/uL Normal 3.80-5.10 Hemoglobin 8.3 g/dL Low 11.7-15.5 Hematocrit 27.8 % Low 35.0-45.0 MCV 67.3 fL Low 80.0-100.0 MCH 20.1 pg Low 27.0-33.0 MCHC 29.9 g/dL Low 32.0-36.0 RDW 20.2 % High 11.0-15.0 Platelet Count 442 Thousand/uL High 140-400 MPV 10.5 fL Normal 7.5-12.5 Absolute Neutrophils 3590 cells/uL Normal 7446-6332 Absolute Lymphocytes 1358 cells/uL Normal 850-3900 Absolute Monocytes 595 cells/uL Normal 200-950 Absolute Eosinophils 558 cells/uL High 15-500 Absolute Basophils 99 cells/uL Normal 0-200 Neutrophils 57.9 % Normal 38-80 Lymphocytes 21.9 % Normal 15-49 Monocytes 9.6 % Normal 0-13 Eosinophils 9.0 % High 0-8 Basophils 1.6 % Normal 0-2 General Health Panel 06/05/2019 [facility] TSH 2.44 mIU/L Normal 0.40-4.[address] [facility] [address] [place], [place] [id number] [phone] T4, Free 1.2 ng/dL Normal 0.8-1.8 Hemoblobin A1c 05/08/2019 [facility] Hemoglobin A1c 6.9 %oftotalHgb High <5.7 6 W/Eag [address] [place] [address] [phone] eAG (mg/dL) 151 (calc) eAG (mmol/L) 8.4 (calc) CBC W/ 05/08/2019 [facility] White Blood 6.5 Thousand/uL Normal 3.8 -10.8 Diff & PLT [address] [place] [address] [phone] Red Blood Cell Count 4.07 Million/uL Normal 3.80-5.10 Hemoglobin 7.9 g/dL Low 11.7-15.5 Hematocrit 27.1 % Low 35.0-45.0 MCV 66.6 fL Low 80.0-100.0 MCH 19.4 pg Low 27.0-33.0 MCHC 29.2 g/dL Low 32.0-36.0 RDW 19.4 % High 11.0-15.0 Platelet Count 455 Thousand/uL High 140-400 MPV 11.1 fL Normal 7.5-12.5 Absolute Neutrophils 3439 cells/uL Normal 2821-6726 Absolute Lymphocytes 1827 cells/uL Normal 850-3900 Absolute Monocytes 546 cells/uL Normal 200-950 Absolute Eosinophils 592 cells/uL High 15-500 Absolute Basophils 98 cells/uL Normal 0-200 Neutrophils 52.9 % Normal 38-80 Lymphocytes 28.1 % Normal 15-49 Monocytes 8.4 % Normal 0-13 Eosinophils 9.1 % High 0-8 Basophils 1.5 % Normal 0-2 Comment(S) Polychromasia 1 <SEE NOTE> 7 Basic Metabolic Panel 05/08/2019 [facility] Glucose 141 mg/dL High 65-99 8 W/O CA And Egfr [address] [place], [place] [address] [phone] Urea Nitrogen (BUN) 15 mg/dL Normal 7-25 Creatinine 0.76 mg/dL Normal 0.60-0.93 9 BUN/Creatinine Ratio NOT APPLICABLE (calc) 6-22 Sodium 135 mmol/L Normal 135-146 Potassium 4.7 mmol/L Normal 3.5-5.3 Chloride 97 mmol/L Low 98-110 Carbon Dioxide 31 mmol/L Normal 20-32 Laboratory test 05/08/2019 [facility] Enhanced PDF SEE IMAGE finding [address] [place] [address] [id number] [phone] Basic Metabolic 01/24/2019 Sodium 137 mmol/L 135-14 10 Panel 6 Potassium 4.7 mmol/L 3.5-5.3 Chloride 100 mmol/L 98-110 Carbon Dioxide 27 mmol/L 20-32 11 Calcium 9.6 mg/dL 8.6-10.4 Glucose 147 mg/dL High 65-99 12 Urea Nitrogen (BUN) 22 mg/dL 7-25 Creatinine 0.79 mg/dL 0.60-0.93 13 BUN/Creatinine Ratio 27.6 High 6-22 Egfr Non-Afr. Egyptian 74 ML/MIN/1.73M2 > Or = 60 Egfr [...] approximately 13% higher for people identified as -Egyptian. 6 For someone without known diabetes, a [...] approximately 13% higher for people identified as -Egyptian. 10 FASTING 11 Reference range for high altitude clients: 18-30 mmol/L 12 GLUCOSE REFERENCE RANGE BASED ON FASTING SPECIMEN. 13 The upper reference limit for Creatinine is approximately 13% higher for people identified as -Egyptian. 14 LDL-C is now calculated using the Toño-Almodovar calculation, which is a validated novel method providing better accuracy than the Friedewald equation in the estimation of LDL-C. Tñoo LEWIS et al.NATY.2013;310(19):5393-6701 Desirable range <100 mg/dL for primary prevention; <70 mg/dL for patients with CHD or diabetic patients with >or= 2 CHD risk factors. For additional information, please refer to http://education.[employer]emisimo/faq/XAR797(This link is being provided for informational/educational purposes [...] GOAL Procedures Date Code Description Status 06/04/2016 [id number] Bone Mineral Density Test Completed 02/20/2015 [id number] Mammogram Completed 08/28/2011 [id number] Colonoscopy Completed Medical Devices Description No Information Available Encounters Type Date Location Provider Dx Diagnosis Office Visit 05/11/2019 Main Office Mily Meredith M.D. D50.9 Iron deficiency 12:15p anemia, unspecified Office Visit 05/09/2019 Main Office Mily Meredith M.D. E11.9 Type 2 diabetes 10:45a mellitus without complications K21.9 Gastro-esophageal reflux disease without esophagitis Z12.31 Encntr screen mammogram for malignant neoplasm of breast Office Visit 02/20/2019 3:00p Main Office Sara More9 Type 2 diabetes M.D. mellitus without complications [...] Mily Meredith M.D.B30.9 Viral conjunctivitis, unspecifiedNew Medication:Neomycin/Polymyxin/Dexamethasone 3.5-98027-1.1 - 1 qtt every 4 hours w/a [...]
[2019-06-18 17:54] VITALS: BP 171/97
--- NOTE | 2019-06-18 18:07 | UC ---
Headache HPI - HPI Summary HPI Summary: Patient is year old , who present today to the urgent care with headache that started today morning . She reports that she notices some headache last night as well . Reports Severe headache and feels that it is "the worst headache I've ever had in my life". She denies any other symptoms. She tried Flonase nasal spray without any relief. - History Of Current Complaint Chief Complaint: UCHeadache Stated Complaint: HEADACHE/SINUS Time Seen by Provider: 06/18/19 17:40 Hx Obtained From: Patient ?: No Pain Intensity: 6 - Allergies/Home Medications Allergies/Adverse Reactions: Allergies Allergy/AdvReac Type Severity Reaction Status Date / Time No Known Allergies Allergy Verified 06/18/19 17:46 Home Medications: Home Medications Acetaminophen [Tylenol] 1 tab PO ONCE 06/18/19 [History Confirmed 06/18/19] Dm/Acetaminophen/Doxylamine [Vicks Nyquil Cold-Flu Liquid] 1 dose PO ONCE [History Confirmed 06/18/19] Folic Acid TAB* [Folvite TAB*] 1 tab PO DAILY 06/18/19 [History Confirmed ] Ibuprofen TAB* [Advil TAB*] 400 mg PO ONCE 06/18/19 [History Confirmed 06/18/19] Iron 1 tab PO DAILY 06/18/19 [History Confirmed 06/18/19] PMH/Surg Hx/FS Hx/Imm Hx - Additional Past Medical History Additional PMH: Past Medical History : COPD, diabetes mellitus, asthma, GERD Past Surgical History: Bilateral TKR, appendectomy, bowel resection Family History : non contributory Social History : No alcohol, former smoker, no drug use. . Previously Healthy: Yes - Surgical History Surgical History: Yes Surgery Procedure, Year, and Place: 1988 HYSTER [facility]. 2007 RT TOTAL [place]NEE [place]. 2010 LT TOTAL KNEE [place]. appendectomy, bowel resection s/p diverticultis - Family History Known Family History: Positive: Non-Contributory - Social History Alcohol Use: None Substance Use Type: None Smoking Status (MU): Former Smoker Review of Systems All Other Systems Reviewed And Are Negative: Yes Constitutional: Positive: Negative Skin: Positive: Negative Eyes: Positive: Negative ENT: Positive: Negative Respiratory: Positive: Negative Cardiovascular: Positive: Negative Gastrointestinal: Positive: Negative Genitourinary: Positive: Negative Motor: Positive: Negative Neurovascular: Positive: Negative Musculoskeletal: Positive: Negative Neurological: Positive: Headache Psychological: Positive: Negative Is Patient Immunocompromised?: No Physical Exam - Summary Physical Exam Summary: Physical Exam: Const: Appears well. No signs of apparent distress present. Alert and oriented x 3. Musculo: Walks with a normal gait. Head/Face: Atraumatic, normocephalic on inspection. Eyes: EOMI and PERRLA in both eyes. Conjunctivae clear. No discharge noted ENT: Hearing normal, Respiratory: Respirations are unlabored. Lungs clear to auscultation bilaterally, no wheezing , rhonchi or rales noted . CVS: Regular rate and Rhythm, S1S2 normal , no murmurs identified. Extremities: Peripheral circulation is grossly normal. Pulses 2+ Abdomen : Soft non tender , nondistended , Bowel sounds present . No guarding , rebound tenderness or rigidity noted. Skin: No lesions or rash located on the upper extremities or on the lower extremities. Neuro: Cranial nerves II to XII intact, motor and sensory intact. DTR Intact bilaterally. Mood is normal. Affect is normal. GCS: 15 Pre-hospital [place] stroke scale : neg Triage Information Reviewed: Yes Vital Signs: Initial Vital Signs Temp 99.6 F 06/18/19 17:47 Pulse 95 06/18/19 17:47 Resp 16 06/18/19 17:47 BP 171/97 06/18/19 17:47 Pulse Ox 96 06/18/19 17:47 Vital Signs Reviewed: Yes Headache Course/Dx - Course Course Of Treatment: Patient needs additional testing, thus ER transfer advised and patient agrees. Report called to the ER provider (Stephany Randall )at [facility] advised provider of the history, physical examination, and duration of illness so far and the need for definitive management. Her will drive her to the ER. Her vitals are stable at the time of discharge. - Differential Dx/Diagnosis Differential Diagnosis/HQI/PQRI: Subarachnoid Hemorrhage Provider Diagnosis: Acute headache Discharge ED - Sign-Out/Discharge Documenting (check all that apply): Patient Departure All imaging exams completed and their final reports reviewed: No Studies - Discharge Plan Condition: Stable Disposition: HOME-RECOMMEND TO ED Patient Education Materials: Acute Headache (ED) Referrals: Mily Meredith MD [Primary Care Provider] - Additional Instructions: Please go immediately to the ER from here for CT scan. I have called in a report. - Billing Disposition and Condition Condition: STABLE Disposition: Home-Recommend to ED
== END 2019-06-18 18:17 | disposition home health service (06) ==
LOC: UCCORT 17:35
DX: R51 Headache (principal); J44.9 Chronic obstructive pulmonary disease, unspecified; E11.9 Type 2 diabetes mellitus without complications; J45.909 Unspecified asthma, uncomplicated; Z87.891 Personal history of nicotine dependence
CPT/HCPCS: 99211; G0463